=== PATIENT | female | born 1935 | race Caucasian/White ===

== ENCOUNTER 2016-10-17 11:04 | Emergency (ER) | payer MEDICARE, OTHER ==
[~2016-10-17] VITALS: Ht 154.9 cm; Wt 74.5 kg
[~2016-10-17 11:04] MED LIST: ASPI81TA3 PO; CIPR500T4 PO; FAMO20TA18 PO; IBUP-1542 PO; LOSA50TA6 PO; METR500T PO; PERCOCET PO; UDTYL PO
[2016-10-17 11:21] VITALS: Ht 154.9 cm; Wt 74.5 kg
[2016-10-17] MEDS ORDERED: TYL500 PO (14:00)
[2016-10-17] MEDS ORDERED: D-ME473S2 PO (14:00)
[2016-10-17] MEDS ORDERED: AZIT250T94 PO (14:00)
--- NOTE | 2016-10-17 14:04 | RADRPT ---
PROCEDURE: XR Chest. CLINICAL INDICATION: Cough TECHNIQUE: Chest AP portable COMPARISON: 03/02/2015 FINDINGS: The mediastinal structures are unremarkable. There is calcification of the thoracic aorta (consiste nt with atherosclerosis). The heart is normal in size and configuration. The pulmonary vascularity is normal. The lung padilla are unremarkable. No consolidation is identified. The pleural spaces are unremarkable. There are senescent changes of the axial skeleton. IMPRESSION: Calcification of the thoracic aorta (consistent with atherosclerosis). No evidence for active cardiopulmonary disease. RPTAT: [facility] .Irineo Macario MD, MD Date Time Electronically viewed and signed by .Irineo Macario MD, on 10/17/2016 14:04 .B/
--- NOTE | 2016-10-17 14:04 | ERD ---
ER Documentation Chief Complaint Date/Time DATE: 10/17/16 TIME: 14:03 Chief Complaint cough phlegm x 5 days with some back pain HPI This 81-year-old female presents with productive cough last 5 days. She has mild upper pleuritic back pain. She denies fevers, vomiting, abdominal pain, urinary complaints with ROS All systems reviewed and are negative except as per history of present illness. Medications Home Meds Active Scripts Acetaminophen* (Tylenol*) 500 Mg Tab, 500 MG PO Q4H Y for MILD PAIN LEVEL 1-3, # 14 TAB Prov:ALAINA GUERRA MD 10/17/16 Dextromethorphan Hb-Promethazine Hcl* (Promethazine DM* Syrup) 473 Ml Syrup, 5 ML PO Q6 Y for COUGH for 5 Days, ML Prov:ALAINA GUERRA MD 10/17/16 Azithromycin* (Zithromax*) 250 Mg Tablet, 250 MG PO .ZPACK DIRECTED, #6 TAB TAKE 500 MG (2 TABS) THE FIRST DAY THEN 250 MG (1 TAB) DAYS 2-5 Prov:ALAINA GUERRA MD 10/17/16 Famotidine* (Famotidine*) 20 Mg Tablet, 20 MG PO DAILY, #7 TAB Prov:ROSA HAMILTON MD 03/03/15 Metronidazole* (Flagyl*) 500 Mg Tab, 500 MG PO Q8, #21 Prov:ROSA HAMILTON MD 03/03/15 Ciprofloxacin Hcl* (Ciprofloxacin Hcl*) 500 Mg Tab, 500 MG PO BID@06,18, #14 Prov:ROSA HAMILTON MD 03/03/15 Oxycodone Hcl/Acetaminophen (Percocet) 1 Tab Tab, 1 TAB PO Q4H Y for MILD PAIN ( 1-3), #1 TAB Prov:ROSA HAMILTON MD 03/03/15 Ibuprofen* (Ibuprofen*) 600 Mg Tab, 600 MG PO Q6H Y for MODERATE PAIN LEVEL 4-6 , #1 Prov:ROSA HAMILTON MD 03/03/15 Acetaminophen* (Tylenol*) 160 Mg/5 Ml Soln, 650 MG PO Q4H Y for PAIN AND OR ELEVATED TEMP, #1 Prov:ROSA HAMILTON MD 03/03/15 Reported Medications Losartan Potassium* (Losartan Potassium*) 50 Mg Tablet, 50 MG PO DAILY, TAB 04/24/14 Aspirin* (Aspirin* Chew) 81 Mg Tab.chew, 81 MG PO DAILY, TAB.CHEW 04/24/14 Allergies Allergies: Coded Allergies: No Known Allergy (Unverified , 04/24/14) PMhx/Soc History of Surgery: Yes (RIGHT FOOT SURGERY) Anesthesia Reaction: No Hx Neurological Disorder: No Hx Respiratory Disorders: Yes (ASTHMA) Hx Cardiac Disorders: Yes (HTN) Hx Psychiatric Problems: No Hx Miscellaneous Medical Probl: Yes (FACIAL PARALYSIS ) Hx Alcohol Use: No Hx Substance Use: No Hx Tobacco Use: No Smoking Status: Never smoker Physical Exam Vitals Vital Signs Date Time Temp Pulse Resp B/P Pulse Ox O2 Delivery O2 Flow Rate FiO2 10/17/16 11:21 98.3 75 18 145/70 96 Physical Exam Const: [] Morbidly obese, [id number] Head: Atraumatic Eyes: Normal Conjunctiva ENT: Normal External Ears, Nose and Mouth. Neck: Full range of motion..~ No meningismus. Resp: Clear to auscultation bilaterally. Slight rhonchi without rales or wheezing appreciated. Cardio: Regular rate and rhythm, no murmurs Abd: Soft, non tender, non distended. Normal bowel sounds Skin: No petechiae or rashes Back: No midline or flank tenderness Ext: No cyanosis, or edema Neur: Awake and alert Psych: Normal Mood and Affect Procedures/MDM Chest X-ray 1V Interpreted by me: Soft Tissue: No acute abnormalities Bones: No acute abnormalities Mediastinum/Cardiac Silhouette/Lungs: [No acute abnormalities]. Patient having no acute findings on 1 view chest Patient presents with URI symptoms and productive cough last 5 days. She was treated with Zithromax, promethazine and Tylenol. There is no evidence of hypoxemia, respiratory distress. Patient does not have anterior chest pain suggestive of acute coronary syndrome. The patient was stable with no new complaints during the ER course. Clinically, there is no current evidence to suggest meningitis, sepsis, acute abdomen, pneumonia, acute coronary syndrome, pulmonary embolism, or any other emergent condition appearing to require further evaluation or hospitalization. The patient should certainly return for any new or worsening symptoms per the aftercare instructions. They should otherwise follow-up with her primary care doctor for reevaluation this week. Departure Diagnosis: Primary Impression: Cough Condition: Stable Patient Instructions: Acute Bronchitis ALAINA GUERRA MD Oct 17, 2016 14:04
[2016-10-17 14:06] VITALS: BP 142/76; PULSE 80; RESP 18; TEMP 98.1
== END 2016-10-17 14:08 | disposition home or self-care (01) ==
LOC: FTE 11:04
DX: R05 Cough (principal); I10 Essential (primary) hypertension; J45.909 Unspecified asthma, uncomplicated; Z79.82 Long term (current) use of aspirin
CPT/HCPCS: 71010